=== PATIENT | female | born 1970 | race Two or more races ===

== ENCOUNTER 2017-06-10 17:43 | Emergency (ER) | payer OTHER ==
[2017-06-10 18:02] VITALS: BP 122/87
--- NOTE | 2017-06-10 18:03 | UC ---
Respiratory Complaint HPI - HPI Summary HPI Summary: Pt presents with sinus pain/pressure/congestion, right ear pain, dry cough, and headache for the last week. She is currently 7.5months . She saw her OBGYN today who prescribed her an antibiotic, but pt says she went to the pharmacy to hand picker the rx and there was nothing there. By this time her OBGYN' s office was closed so she came to our clinic. She denies fever, chills, SOB, chest pain, abdominal pain, n/v/d/c, vaginal bleeding, or cramping. - History of Current Complaint Chief Complaint: UCRespiratory Stated Complaint: URI Time Seen by Provider: 06/10/17 17:59 Hx Obtained From: Patient Hx Last Menstrual Period: 10/17/16 ?: Yes Onset/Duration: Gradual Onset Timing: Constant Severity Initially: Moderate Severity Currently: Moderate Pain Intensity: 8 Pain Scale Used: 0-10 Numeric Character: Cough: Nonproductive - Allergies/Home Medications Allergies/Adverse Reactions: Allergies Allergy/AdvReac Type Severity Reaction Status Date / Time Penicillin V Allergy fainted Verified 06/10/17 18:02 Home Medications: Home Medications Mucinex* 600 mg PO BID PRN MDD cough 06/10/17 [History Confirmed 06/10/17] PMH/Surg Hx/FS Hx/Imm Hx Previously Healthy: Yes Other History Of: Negative For: Anticoagulant Therapy - Surgical History Surgical History: None - Family History Known Family History: Positive: Unknown - Social History Lives: With Family Alcohol Use: None Substance Use Type: None Smoking Status (MU): Never Smoked Tobacco Review of Systems Constitutional: Negative Skin: Negative Eyes: Negative ENT: Sore Throat, Ear Ache, Nasal Discharge, Sinus Congestion, Sinus Pain/ Tenderness Respiratory: Cough Cardiovascular: Negative Gastrointestinal: Negative All Other Systems Reviewed And Are Negative: Yes Physical Exam Triage Information Reviewed: Yes Appearance: Well-Appearing, No Pain Distress, Well-Nourished Vital Signs: Initial Vital Signs Temp 98.6 F 06/10/17 17:52 Pulse 122 06/10/17 17:52 Resp 20 06/10/17 17:52 BP 122/87 06/10/17 17:52 Pulse Ox 98 06/10/17 17:52 Vital Signs Reviewed: Yes Eyes: Positive: Conjunctiva Clear. Negative: Conjunctiva Inflamed, Discharge ENT: Positive: Hearing grossly normal, Pharynx normal, Nasal congestion, Nasal drainage, TM bulging - Right ear, TM red - Right ear, Sinus tenderness, Uvula midline. Negative: Pharyngeal erythema, Tonsillar swelling, Tonsillar exudate, Hoarse voice Neck: Positive: Supple, Nontender, No Lymphadenopathy Respiratory: Positive: Chest non-tender, Lungs clear, Normal breath sounds, No respiratory distress, No accessory muscle use Cardiovascular: Positive: RRR, No Murmur, Pulses Normal Neurological: Positive: Alert Psychological: Positive: Age Appropriate Behavior Skin: Negative: rashes, significant lesion(s) UC Diagnostic Evaluation - Laboratory O2 Sat by Pulse Oximetry: 98 Respiratory Course/Dx - Course Course Of Treatment: Right otitis media. Sinusitis - Differential Dx/Diagnosis Provider Diagnoses: Right otitis media. Sinusitis Discharge - Discharge Plan Condition: Stable Disposition: HOME Prescriptions: Azithromycin TAB* [Zithromax TAB (Z-MARYJANE) 250 mg #6 tabs] 2 tab PO .TODAY, THEN 1 DAILY #1 maryjane Patient Education Materials: Ear Infection (ED) Referrals: Colton Storey MD [Primary Care Provider] - Jese Plasencia MD [Medical Doctor] - As Soon As Possible Additional Instructions: If you develop a fever, shortness of breath, chest pain, new or worsening symptoms - please call your PCP or go to the ED.
== END 2017-06-10 18:45 | disposition home or self-care (01) ==
LOC: UCEAST 17:43
DX: O26.93 Pregnancy related conditions, unspecified, third trimester (principal); J32.9 Chronic sinusitis, unspecified; H66.91 Otitis media, unspecified, right ear; Z3A.00 Weeks of gestation of pregnancy not specified; Z88.0 Allergy status to penicillin
CPT/HCPCS: 99212; G0463

== ENCOUNTER 2017-07-21 05:16 | Inpatient (IN) | payer OTHER ==
[2017-07-21 06:52] LABS: ABS Basophils 0 10^3/ul (0-0.2); ABS Eosinophils 0.2 10^3/ul (0-0.6); ABS Lymphocytes 1.7 10^3/ul (1.0-4.8); ABS Monocytes 0.5 10^3/ul (0-0.8); ABS Neutrophils 5.4 10^3/ul (1.5-7.7); ABS Nucleated RBC 0 10^3/ul; Eosinophil % 2.8 % (0-6); Hematocrit 41 % (35-47); Hemoglobin 13.7 g/dl (12.0-16.0); Lymphocyte % 21.3 % (25-47); Mean Corpuscular HGB Conc 34 g/dl (31-36); Mean Corpuscular Hemoglobin 28 pg (27-31); Mean Corpuscular Volume 83 fL (80-97); Mean Platelet Volume 10 um3 (7.4-10.4); Nucleated Red Blood Cells % 0; Platelet Count 116 10^3/ul (150-450); Red Blood Count 4.93 10^6/ul (4.0-5.4); Red Cell Distribution Width 16 % (10.5-15); White Blood Count 7.9 10^3/ul (3.5-10.8)
[2017-07-21] MEDS ORDERED: Sodium Citrate/Citric Acid* 15 ML UDC ONE (07:12)
--- NOTE | 2017-07-21 07:37 | HP ---
General Information - General Information Maternal Age: 46 Grav: 3 Para: 2 SAB: 0 IEA: 0 Estimated Due Date: 07/28/17 Gestational Age in Weeks and Days: 39 Weeks and 0 Days Maternal Blood Type and Rh: B Positive - Results this Serology/RPR Result: Non-Reactive Rubella Result: Immune HBsAg Result: Negative HIV Result: Negative GBS Culture Result: Negative Past Medical History Delivery History: Hx Uncomplicated Vaginal Delivery - x2, See Records Pertinent Past Medical History: Non-Contributory Pertinent Past Surgical History: None Pertinent Family History: Non-Contributory - Antepartal Records Antepartal Records: Reviewed, Complicated by: - report of resolved marginal previa Review of Systems Constitutional: Comfortable CV Complaint: No Respiratory: Shortness of Breath: No Gastrointestinal: No Nausea/Vomiting, Normal Bowel Movement Genitourinary: Bleeding, No Leaking Fluid Musculoskeletal: No Complaint Neurological: No Headache Movement: Decreased - since last night Exam Allergies/Adverse Reactions: Allergies Penicillins Allergy (Verified 07/21/17 04:52) Rash normal, afebrile Lab Values - Entire Visit: Laboratory Tests 07/21/17 07/21/17 07/21/17 06:20 06:20 06:20 WBC 7.9 RBC 4.93 Hgb 13.7 Hct 41 MCV 83 MCH 28 MCHC 34 RDW 16 H Plt Count 116 L MPV 10 Neut % (Auto) 68.6 Lymph % (Auto) 21.3 L [place] % (Auto) 6.9 Eos % (Auto) 2.8 Baso % (Auto) 0.4 Absolute Neuts (auto) 5.4 Absolute Lymphs (auto) 1.7 Absolute Monos (auto) 0.5 Absolute Eos (auto) 0.2 Absolute Basos (auto) 0 Absolute Nucleated RBC 0 Nucleated RBC % 0 Sodium 133 Potassium 3.9 Chloride 104 Carbon Dioxide 24 Anion Gap 5 BUN 9 Creatinine 0.68 Est GFR ( Amer) 120.9 Est GFR (Non-Af Amer) 94.0 BUN/Creatinine Ratio 13.2 Glucose 77 Calcium 9.0 Total Bilirubin 0.40 AST 22 ALT 13 Alkaline Phosphatase 203 H Total Protein 6.2 L Albumin 3.5 Globulin 2.7 Albumin/Globulin Ratio 1.3 Blood Type B Positive - Measurements Height: 5 ft 2 in Weight: 189 lb Weight in lbs: 189 Body Mass Index (BMI): 34.5 Pre- Weight: 156 lb Weight Gained This : 33 lbs and 0 ozs - Exam Abdomen: No Upper Quadrant Pain Breast: Breast Exam Deferred Heart: Normal Rhythm/Heart Sounds Lungs: Clear Bilaterally Rectal: Rectal Exam Deferred EFM Findings - External Monitor Findings Baseline Heart Rate: 130 External Monitor Findings: Accelerations Present, No Pattern of Variable or Late Decelerations, Variability Moderate - but long periods of minimal variability Contractions: Irregular, Mild Contraction Frequency: rare Assessment/Plan - Reason for Visit Reason for Visit: 39 wks, presents to ER with bleeding that started at 0300. Initially with a couple light pads, bright red. Called provider who told her she could wait for a while, but pt did not feel comfortable with that so she came in. FMs active until around 11pm, after that none until coming to L&D. On presentation, RN noted significant bright red blood, running down leg and soaked at least two pads. This resolved over the next 30 min. On exam by MD, cervix not palpable, no presenting part. No blood on glove. Bedside sono noted head in the RLQ, placenta clearly in lower uterus extending to pt's left. Appears to be over the cervix, but may just be very low. Some clot seen under placenta. - Obstetrical Risk Factors Risk Factors Comment: Advanced maternal age - Plan Plan: Expedite C/S Delivery - Admit to L&D. Will proceed with primary C/S. Pt extensively counseled regarding risks of surgery including bleeding, transfusion , infection, organ injury, . Consent signed., Antibiotic Prophylaxis
[2017-07-21] MEDS ORDERED: Morphine PF AMP (0.5MG/ML)* 5 MG/10 ML AMP ONE (07:40)
[2017-07-21] MEDS ORDERED: NS 0.9% IVPB ONE (08:00)
[2017-07-21] MEDS ORDERED: CEFOXITIN IVPB ONE (08:00)
[2017-07-21] MEDS ORDERED: ceFOXitin 2 GM IVPREMIX* 2 GM/50 ML BAG IVPB ONE (08:00)
[2017-07-21] MEDS ORDERED: OXYTOCIN* 10 UNITS/ML 1 ML VIAL ONE (08:17)
[2017-07-21] MEDS ORDERED: Phenylephrine IV* 40 MCG/ML 10 ML SYRINGE ONE (08:17)
[2017-07-21] MEDS ORDERED: Ondansetron INJ* 2 MG/ML VIAL IV PRN (08:37)
[2017-07-21] MEDS ORDERED: DiMENhydriNATE IV* 50 MG/ML VIAL IV PUSH PRN (08:37)
[2017-07-21] MEDS ORDERED: Naloxone* 0.4 MG/ML 1 ML VIAL IV PRN (08:37)
[2017-07-21] MEDS ORDERED: oxyCODONE/Acetamin 5/325 MG* TAB PO PRN ×2 (08:37→09:07)
[2017-07-21] MEDS ORDERED: Witch Hazel PAD* JAR TOPICAL PRN (09:07)
[2017-07-21] MEDS: Ketorolac INJ* 30 MG/ML 1 ML VIAL IV PRN ×2 (09:48→15:47)
[2017-07-21] MEDS: Simethicone TAB* 80 MG TAB.CHEW PO SCH ×3 (12:29→21:34)
[2017-07-21] MEDS: Docusate CAP* 100 MG PO SCH ×2 (14:02→21:34)
[2017-07-21] MEDS: Ibuprofen TAB* 600 MG PO SCH ×3 (21:21→22:35)
[2017-07-22] MEDS: oxyCODONE/Acetamin 5/325 MG* TAB PO PRN ×3 (03:44→22:20)
[2017-07-22 06:40] LABS: ABS Basophils 0.1 10^3/ul (0-0.2); ABS Eosinophils 0.3 10^3/ul (0-0.6); ABS Lymphocytes 1.9 10^3/ul (1.0-4.8); ABS Monocytes 0.8 10^3/ul (0-0.8); ABS Neutrophils 10.3 10^3/ul (1.5-7.7); ABS Nucleated RBC 0 10^3/ul; Eosinophil % 2.2 % (0-6); Hematocrit 34 % (35-47); Hemoglobin 11.9 g/dl (12.0-16.0); Lymphocyte % 14.6 % (25-47); Mean Corpuscular HGB Conc 35 g/dl (31-36); Mean Corpuscular Hemoglobin 29 pg (27-31); Mean Corpuscular Volume 83 fL (80-97); Nucleated Red Blood Cells % 0.1; Red Blood Count 4.09 10^6/ul (4.0-5.4); Red Cell Distribution Width 16 % (10.5-15); White Blood Count 13.4 10^3/ul (3.5-10.8)
[2017-07-22 06:42] LABS: Mean Platelet Volume 10 um3 (7.4-10.4); Platelet Count 108 10^3/ul (150-450)
[2017-07-22] MEDS: Ibuprofen TAB* 600 MG PO SCH ×3 (07:34→20:56)
[2017-07-22] MEDS: Ferrous Gluconate TAB* 324 MG TAB PO SCH ×2 (08:30→20:57)
[2017-07-22] MEDS: Simethicone TAB* 80 MG TAB.CHEW PO SCH ×4 (09:04→20:56)
[2017-07-22] MEDS: Docusate CAP* 100 MG PO SCH ×3 (09:04→20:57)
--- NOTE | 2017-07-22 18:48 | OP ---
DATE OF OPERATION: 07/21/17 - ROOM #102 DATE OF : 74 SURGEON: Jese Plasencia MD PLANT OPERATOR HELPER: Dr. Díaz. ANESTHESIA: Spinal. ANESTHESIOLOGIST: Dr. Palomino. PRE-OP DIAGNOSIS: 39 weeks gestation with bleeding placenta previa. POST-OP DIAGNOSIS: 39 weeks gestation with bleeding placenta previa. PROCEDURE PERFORMED: Primary low-transverse section with vacuum assist. ESTIMATED BLOOD LOSS: 700 cc. URINE OUTPUT: 500 cc. IV FLUIDS: 1500 cc lactated Ringer's. MATERIALS TO LAB: Cord blood and cord gases. INDICATIONS: This patient is a 46-year-old 3, para 2, who presented this morning to the emergency department with a moderate amount of bright red vaginal bleeding with minimal pain or contractions. The patient also reported that she had had minimal movement overnight. Bleeding had initially started at about 3 o'clock in the morning and the patient presented at about 5. When she was transferred to labor and delivery, heart tracing was noted to be in the 130s to 140s with minimal to moderate variability but rare accelerations. The patient was noted, however, to have fairly persistent bright red bleeding, which was not brisk, but she did manage to soak at least two pads over the period of an hour. The bleeding then ceased completely. An ultrasound was performed at the bedside and the head was noted to be in the right lower quadrant in an oblique position. Directly over the lower uterine segment was the placenta, which extended to the maternal left side. Considering the significant bleeding and the very low placenta in combination with the head which could not enter the pelvis, the decision was made to proceed with a primary section. The patient was extensively counseled and consent was signed. FINDINGS: Delivery was productive of a male weighing 8 pounds 11 ounces , with Apgars of 9 and 9. Time of delivery was 0824. There was no significant blood collection, but the placenta did appear to extend low in the uterus. COMPLICATIONS: None. DESCRIPTION OF PROCEDURE: The risks, benefits, and alternatives were described to the patient and informed consent was obtained. The patient was taken to the operating room with IV running where spinal anesthesia was induced and found to be adequate. The patient was prepped and draped in the normal sterile fashion in the dorsal supine position with leftward tilt. A Pfannenstiel skin incision was made with a scalpel and this was carried down to the underlying fascia sharply. The fascia was then scored in the midline with the scalpel. The incision was extended using Benson scissors. The rectus muscles were dissected off the rectus fascia using blunt and sharp dissection. The rectus muscles were in the midline bluntly. The peritoneum was also entered bluntly. A bladder blade was placed. A bladder flap was created sharply using Metzenbaum scissors. A low transverse uterine incision was made with the scalpel. This was carried down to the amniotic cavity which was productive of clear fluid. The incision was extended with blunt traction. The head was elevated to the level of the incision but with fundal pressure, it could not be delivered through the incision. A Kiwi vacuum cup was placed on the head , and the head successfully delivered with gentle traction and guidance while applying fundal pressure. The shoulders and body then delivered without difficulty. The infant had excellent tone and cried immediately on delivery. The cord was doubly clamped and cut. The was then handed to the awaiting search marketing specialist. Cord blood was collected. The placenta then delivered with manual extraction. The uterus was then exteriorized and cleared of all clots and debris. The uterine incision was reapproximated using 0 Polysorb in a running-locked fashion. A second layer of imbricating sutures of 0 Polysorb was also placed with good hemostasis. The posterior cul-de-sac was irrigated with saline. The uterus was then returned to the abdomen, and the incision was reinspected and noted to be hemostatic. The peritoneum was closed with 3-0 Polysorb in a running fashion. The fascia was closed with 0 Polysorb in a running fashion. The subcutaneous tissues were irrigated and made hemostatic with the Bovie. The skin was then closed with 4-0 Monocryl in a subcuticular stitch. Mastisol and Steri-Strips were placed over the incision which was then covered with a sterile bandage. The patient tolerated the procedure well. Sponge, lap, and needle counts were correct x2. [id number]/[facility] #: [id number] [facility]
[2017-07-23] MEDS: Ibuprofen TAB* 600 MG PO SCH ×6 (04:00→18:33)
--- NOTE | 2017-07-23 07:49 | PTEDU ---
Patient Name: PERFECTO HAMILTON CORTES STACY PERFECTO selected video: Follow Me Mum: [employer] Successful to view on 07/23/2017 at 7:49:06 AM from [id number]
[2017-07-23] MEDS: Docusate CAP* 100 MG PO SCH ×3 (10:08→21:14)
[2017-07-23] MEDS: Simethicone TAB* 80 MG TAB.CHEW PO SCH ×4 (10:08→21:14)
[2017-07-23] MEDS: oxyCODONE/Acetamin 5/325 MG* TAB PO PRN ×2 (12:39→18:57)
[2017-07-24] MEDS: oxyCODONE/Acetamin 5/325 MG* TAB PO PRN ×3 (00:05→13:28)
[2017-07-24] MEDS: Ibuprofen TAB* 600 MG PO SCH ×3 (00:06→13:43)
[2017-07-24 07:51] VITALS: BP 138/78
[2017-07-24] MEDS: Simethicone TAB* 80 MG TAB.CHEW PO SCH ×2 (08:06→13:28)
[2017-07-24] MEDS: Docusate CAP* 100 MG PO SCH ×2 (08:06→13:27)
== END 2017-07-24 13:55 | disposition home or self-care (01) | DRG 766 ==
LOC: MCHOBOUT 05:16 → MCHOB 07:08
PROVIDERS: ADMIT Obstetrics & Gynecology; ATTEND Obstetrics & Gynecology
PROC: 10D00Z1 Extraction of Products of Conception, Low, Open Approach (ICD-10-PCS; principal; 2017-07-21 07:45)
DX: O44.13 Complete placenta previa with hemorrhage, third trimester (principal); Z37.0 Single live birth; Z3A.39 39 weeks gestation of pregnancy; Z88.0 Allergy status to penicillin
CPT/HCPCS: 36415; 80053; 85025; 86850; 86900; 86901; A9270-GY; J0694; J1885; J2590

== ENCOUNTER 2017-08-25 15:13 | Emergency (ER) | payer OTHER ==
[2017-08-25 16:51] LABS: ABS Basophils 0.1 10^3/ul (0-0.2); ABS Eosinophils 0.5 10^3/ul (0-0.6); ABS Lymphocytes 2.2 10^3/ul (1.0-4.8); ABS Monocytes 0.6 10^3/ul (0-0.8); ABS Neutrophils 6.9 10^3/ul (1.5-7.7); ABS Nucleated RBC 0 10^3/ul; Eosinophil % 4.7 % (0-6); Hematocrit 40 % (35-47); Hemoglobin 13.2 g/dl (12.0-16.0); Lymphocyte % 21.2 % (25-47); Mean Corpuscular HGB Conc 33 g/dl (31-36); Mean Corpuscular Hemoglobin 28 pg (27-31); Mean Corpuscular Volume 82 fL (80-97); Mean Platelet Volume 7.7 um3 (7.4-10.4); Nucleated Red Blood Cells % 0.1; Platelet Count 242 10^3/ul (150-450); Red Blood Count 4.82 10^6/ul (4.0-5.4); Red Cell Distribution Width 15 % (10.5-15); White Blood Count 10.3 10^3/ul (3.5-10.8)
[2017-08-25 17:09] LABS: EGFR Non-African American 82.7 (>60)
[2017-08-25] MEDS ORDERED: Iohexol 350* (CONTRAST) 500 ML MDV IV ONE (17:25)
--- NOTE | 2017-08-25 18:57 | RAD ---
INDICATION: LEFT pleuritic chest pain. Dry cough for one week. Pain on inspiration. one month ago. COMPARISON: January 13, 2006 chest radiograph. TECHNIQUE: Multidetector CT images were obtained from the lung apices to the upper abdomen with 69 mL Omnipaque 350 IV contrast. Pulmonary angiogram protocol. Multiplanar reformation including with maximum intensity projection. REPORT: Low lung volumes with LEFT greater than RIGHT subsegmental basilar consolidation. Calcified granuloma at the superior segment of the LEFT lower lobe. Small dependent LEFT pleural effusion. Negative for pneumothorax. Negative for thoracic lymphadenopathy. Mild cardiomegaly. Negative for pericardial effusion. Unremarkable thoracic aorta. Motion artifact limits image quality of the CT pulmonary angiogram. No filling defects are identified within the main to the segmental and where visible the subsegmental pulmonary arteries to indicate pulmonary embolism. Unremarkable Limited images through the upper abdomen. No fracture or suspicious focal osseous lesion evident. IMPRESSION: 1. Small dependent LEFT pleural effusion. 2. LEFT greater than RIGHT bibasilar subsegmental consolidation most suspicious for atelectasis however inflammatory infiltrates/bronchopneumonia is not excluded. 3. Motion artifact limits image quality of the CT pulmonary angiogram. No filling defects are identified within the main to the segmental and where visible the subsegmental pulmonary arteries to indicate pulmonary embolism.
[2017-08-25 20:28] VITALS: BP 122/89
[2017-08-25] MEDS ORDERED: oxyCODONE/Acetamin 5/325 MG* TAB PO ONE (20:36)
--- NOTE | 2017-08-25 21:06 | ED ---
Derrell Carlos Rebecca, scribed for Riki Noriega MD on 08/25/17 at 1619 . HPI Chest Pain - HPI Summary HPI Summary: Pt is a 46 y/o F who presents to ED from her PCP's office c/o CP. Pain began yesterday and is located in the left anterior chest. Initially, pain was mild, though now the pain is moderate, ranked 5/10. Sx aggravated by cough, laughing, deep breaths and movement. Additionally c/o nonproductive cough for 1 week which she has been treating with Ricolla cough drops. Notes vomiting secondary to excessive coughing yesterday. Denies fever, edema. Pt was sent from her PCP' s (Dr. Storey's) office where she had a normal EKG to r/o PE. Pt is 1 month s/p C -section and is currently breast feeding. - History of Current Complaint Chief Complaint: EDChestPainROMI Time Seen by Provider: 08/25/17 16:06 Hx Obtained From: Patient Hx Last Menstrual Period: 10/17/16 Onset/Duration: Started Days Ago - Yesterday, Still Present Current Severity: Moderate Pain Intensity: 5 Pain Scale Used: 0-10 Numeric Chest Pain Location: Left Anterior Aggravating Factor(s): Movement, Deep Breaths, Other: - Laughing Alleviating Factor(s): Nothing Associated Signs and Symptoms: Positive: Nonproductive Cough, Vomiting - secondary to excessive cough - Allergy/Home Medications Allergies/Adverse Reactions: Allergies Allergy/AdvReac Type Severity Reaction Status Date / Time Penicillins Allergy Rash Verified 08/25/17 15:15 PMH/Surg Hx/FS Hx/Imm Hx Endocrine/Hematology History: Denies: Hx Anticoagulant Therapy, Hx Diabetes, Hx Thyroid Disease Cardiovascular History: Denies: Hx Hypertension Respiratory History: Denies: Hx Asthma, Hx Chronic Obstructive Pulmonary Disease (COPD) GI History: Denies: Hx Diverticulosis, Hx Ulcer Neurological History: Reports: Other Neuro Impairments/Disorders - concussion 2013, vertigo - Immunization History Date of Tetanus Vaccine: up to date Date of Influenza Vaccine: has not received Infectious Disease History: No Infectious Disease History: Denies: Hx Clostridium Difficile, Hx Hepatitis, Hx Human Immunodeficiency Virus (HIV), Hx of Known/Suspected MRSA, Hx Shingles, Hx Tuberculosis, Hx Known/ Suspected VRE, Hx Known/Suspected VRSA, History Other Infectious Disease, Traveled Outside the [place] in Last 30 Days - Family History Known Family History: Negative: Renal Disease, Respiratory Disease, Seizure Disorder - Social History Alcohol Use: None Hx Substance Use: No Substance Use Type: Reports: None Hx Tobacco Use: No Smoking Status (MU): Never Smoked Tobacco Review of Systems Negative: Fever Positive: Chest Pain Positive: Cough - nonproductive Positive: see HPI - secondary to excessive coughing - yesterday Negative: Edema All Other Systems Reviewed And Are Negative: Yes Physical Exam - Summary Physical Exam Summary: Appearance: The patient is well-nourished in no acute distress and in no acute pain. Skin: The skin is warm and dry and skin color reflects adequate perfusion. HEENT: The head is normocephalic and atraumatic. The pupils are equal and reactive. The conjunctivae are clear and without drainage. Nares are patent and without drainage. Mouth reveals moist mucous membranes and the throat is without erythema and exudate. The external ears are intact. The ear canals are patent and without drainage. The tympanic membranes are intact. Neck: the neck is supple with full range of motion and non-tender. There are no carotid bruits. There is no neck vein distension. Respiratory: Chest is non-tender. Lungs are clear to auscultation and breath sounds are symmetrical and equal. Cardiovascular: Heart is regular rate and rhythm. There is no murmur or rub auscultated. There is no peripheral edema and pulses are symmetrical and equal. Abdomen: The abdomen is soft and non-tender. There are normal bowel sounds heard in all four quadrants and there is no organomegaly palpated. Musculoskeletal: There is no back tenderness noted. Extremities are non-tender with full range of motion. There is good capillary refill. There is no peripheral edema or calf tenderness elicited. Neurological: Patient is alert and oriented to person, place and time. The patient has symmetrical motor strength in all four extremities. Cranial nerves are grossly intact. Deep tendon reflexes are symmetrical and equal in all four extremities. Psychiatric: The patient has an appropriate affect and does not exhibit any anxiety or depression. Triage Information Reviewed: Yes Vital Signs On Initial Exam: Initial Vitals Temp Pulse Resp BP Pulse Ox 98.8 F 100 20 131/91 99 08/25/17 15:16 08/25/17 15:16 08/25/17 15:16 08/25/17 15:16 08/25/17 15:16 Vital Signs Reviewed: Yes Diagnostics - Vital Signs Vital Signs Temp Pulse Resp BP Pulse Ox 08/25/17 15:16 98.8 F 100 20 131/91 99 - Laboratory Lab Results: Lab Results 08/25/17 08/25/17 08/25/17 Range/Units 16:36 16:36 16:36 WBC 10.3 (3.5-10.8) 10^3/ul RBC 4.82 (4.0-5.4) 10^6/ul Hgb 13.2 (12.0-16.0) g/dl Hct 40 (35-47) % MCV 82 (80-97) fL MCH 28 (27-31) pg MCHC 33 (31-36) g/dl RDW 15 (10.5-15) % Plt Count 242 (150-450) 10^3/ul MPV 7.7 (7.4-10.4) um3 Neut % (Auto) 67.4 (38-83) % Lymph % (Auto) 21.2 L (25-47) % [place] % (Auto) 6.2 (0-7) % Eos % (Auto) 4.7 (0-6) % Baso % (Auto) 0.5 (0-2) % Absolute Neuts (auto) 6.9 (1.5-7.7) 10^3/ul Absolute Lymphs (auto) 2.2 (1.0-4.8) 10^3/ul Absolute Monos (auto) 0.6 (0-0.8) 10^3/ul Absolute Eos (auto) 0.5 (0-0.6) 10^3/ul Absolute Basos (auto) 0.1 (0-0.2) 10^3/ul Absolute Nucleated RBC 0 10^3/ul Nucleated RBC % 0.1 Sodium 137 L (139-145) mmol/L Potassium 3.6 (3.5-5.0) mmol/L Chloride 100 L (101-111) mmol/L Carbon Dioxide 28 (22-32) mmol/L Anion Gap 9 (2-11) mmol/L BUN 13 (6-24) mg/dL Creatinine 0.76 (0.51-0.95) mg/dL Est GFR ( Amer) 106.3 (>60) Est GFR (Non-Af Amer) 82.7 (>60) BUN/Creatinine Ratio 17.1 (8-20) Glucose 94 (70-100) mg/dL Lactic Acid 1.4 (0.5-2.0) mmol/L Calcium 9.2 (8.6-10.3) mg/dL Total Bilirubin 0.30 (0.2-1.0) mg/dL AST 30 (13-39) U/L ALT 35 (7-52) U/L Alkaline Phosphatase 124 H (34-104) U/L Troponin I 0.00 (<0.04) ng/mL Total Protein 7.8 (6.4-8.9) g/dL Albumin 4.1 (3.2-5.2) g/dL Globulin 3.7 (2-4) g/dL Albumin/Globulin Ratio 1.1 (1-3) Result Diagrams: 08/25/17 16:36 08/25/17 16:36 Lab Statement: Any lab studies that have been ordered have been reviewed, and results considered in the medical decision making process. - CT Chest/thorax CTA CT Interpretation Completed By: Radiologist - 1. Small dependent LEFT pleural effusion. 2. LEFT greater than RIGHT bibasilar subsegmental consolidation most suspicious for atelectasis however inflammatory infiltrates/bronchopneumonia is not excluded. 3. Motion artifact limits image quality of the CT pulmonary angiogram. No filling defects are identified within the main to the segmental and where visible the subsegmental pulmonary arteries to indicate pulmonary embolism. ED physician reviewed this radiology report. - EKG 1516 Cardiac Rate: NL - Borderline sinus tachy - 98 bpm EKG Rhythm: Sinus Rhythm EKG Interpretation: No STEMI; borderline sinus tachycardia Re-Evaluation - Re-Evaluation First Eval Re-Evaluation Time: 19:59 Change: Improved Comment: Pt is doing better. Discussed results with the pt. Chest Pain Course/Dx - Course Course Of Treatment: Ms. Bennett presented with a concern for PE and CTA revealed only a pleural effusion. There was no evidence for acute infection with normal vitals and labs and I'm not sure of the etiology. I recommended symptomatic treatment and close F/U. - Diagnoses Provider Diagnoses: Pleural effusion Discharge - Sign-Out/Discharge Documenting (check all that apply): Discharge - Discharge - Discharge Plan Condition: Stable Disposition: HOME Prescriptions: oxyCODONE/Acetamin 5/325 MG* [Percocet 5/325 TAB*] 1 tab PO Q6H PRN #20 tab MDD 4 PRN Reason: Pain Patient Education Materials: Pleural Effusion (ED) Referrals: Colton Storey MD [Primary Care Provider] - (Follow up with your primary care physician this week. ) Additional Instructions: RETURN TO EMERGENCY DEPARTMENT FOR ANY RETURNING OR WORSENING SYMPTOMS. - Billing Disposition and Condition Condition: STABLE Disposition: HOME The documentation as recorded by the Derrell benjamin Rebecca accurately reflects the service I personally performed and the decisions made by , Riki Noriega MD.
== END 2017-08-25 20:30 | disposition home or self-care (01) ==
LOC: ED 15:13
DX: J90 Pleural effusion, not elsewhere classified (principal); R05 Cough; R11.10 Vomiting, unspecified; R07.9 Chest pain, unspecified
CPT/HCPCS: 36415; 71275; 80053; 83605; 84484; 85025; 93005; 99283; Q9967